=== PATIENT | male | born 1975 | race Two or more races ===

== ENCOUNTER 2019-02-01 11:12 | Emergency (ER) | payer MEDICAID ==
[~2019-02-01] VITALS: Ht 180.3 cm; Wt 81.6 kg
[2019-02-01 11:26] VITALS: BP 140/90
[2019-02-01] MEDS ORDERED: KETOROLAC TROMETH 60MG/2ML VIAL IM ONE (13:15)
== END 2019-02-01 13:49 | disposition home or self-care (01) ==
LOC: EDBD 11:12 → ER 11:31
DX: S22.41XA Multiple fractures of ribs, right side, initial encounter for closed fracture (principal); I10 Essential (primary) hypertension; W50.0XXA Accidental hit or strike by another person, initial encounter; Y93.61 Activity, american tackle football; Y99.8 Other external cause status; Y92.89 Other specified places as the place of occurrence of the external cause
CPT/HCPCS: 71101; 96372; 99283; J1885